=== PATIENT | female | born 1985 | race Caucasian/White ===

== ENCOUNTER 2016-11-11 20:39 | Emergency (ER) | payer BC ==
[2016-11-11 20:49] VITALS: BP 148/99
--- NOTE | 2016-11-11 20:49 | EDM.PDOC ---
ED HPI HEADACHE COMPLAINT - General Chief Complaint: Headache Stated Complaint: MIGRAINE Time Seen by Provider: 11/11/16 20:48 - History of Present Illness INITIAL COMMENTS - FREE TEXT/NARRATIVE: 31-year-old female presents emergency room with atypical migraine. Patient gets these about monthly and usually can treat them at home with tramadol Flexeril and she has a triptan at home however does not like taking it because it makes her feel weird. This headache started this morning and he comes and goes started out behind her left eye and radiated backwards. She had no aura she had to leave work early this evening because the pain is getting worse. Patient denies any fevers chills this is a very typical headache for her she has some nausea no vomiting she has significant photophobia. Patient is on Coumadin for a hypercoagulable state, lupus anticoagulant. - Related Data Allergies/ADRs: Allergies Allergy/AdvReac Type Severity Reaction Status Date / Time Penicillins Allergy Rash Verified 11/11/16 20:48 Sulfa (Sulfonamide Allergy Rash Verified 11/11/16 20:48 Antibiotics) loracet Allergy Vomiting Uncoded 11/11/16 20:48 Home Meds: Home Meds Cholecalciferol (Vitamin D3) [Vitamin D] 1,000 units PO DAILY 09/17/14 [History] [place]-3 Fatty Acids [Fish Oil] 1,000 mg PO DAILY 09/17/14 [History] Simvastatin [Zocor] 20 mg PO DAILY 09/17/14 [History] Warfarin [Coumadin] 7.5 mg PO TUTH 09/17/14 [History] Losartan. 05/28/15 [History] Prilosec. 05/28/15 [History] Warfarin [Coumadin] 5 mg PO SUMOWEFRSA 05/28/15 [History] Acetaminophen with Codeine [Acetamin-Codein 300-30 mg/12.5] 12.5 ml PO Q6H PRN # 1 bottle 06/15/15 [Rx] Albuterol [Proventil HFA] 2 puff INH QID PRN #1 inhaler 06/15/15 [Rx] Azithromycin [Zithromax] 500 mg PO DAILY #5 tablet 06/15/15 [Rx] Past Medical History Cardiovascular History: Reports: High cholesterol, Hypertension Respiratory History: Reports: Asthma Other Genitourinary History: spills protein from her kidneys Other Hematologic History: clotting disorder, lupus anticoagulant Social & Family History - Tobacco Use Smoking Status *Q: Never Smoker Second Hand Smoke Exposure: No - Alcohol Use Days Per Week of Alcohol Use: 0 - Recreational Drug Use Recreational Drug Use: No ED ROS GENERAL - Review of Systems Review Of Systems: See Below Constitutional: Denies: fever, chills HEENT: Reports: No symptoms, Other (Photophobia) Respiratory: Reports: No Symptoms Cardiovascular: Reports: No symptoms GI/Abdominal: Reports: Nausea. Denies: Abdominal pain, Vomiting : Reports: no symptoms Musculoskeletal: Reports: no symptoms Neurological: Reports: Headache. Denies: Confusion, Dizziness, Numbness, Tremors, Trouble Speaking, Difficulty Walking, Weakness Psychiatric: Reports: No symptoms - Physical Exam Exam: See Below Exam Limited By: No limitations General Appearance: alert, no apparent distress Eye Exam: bilateral eye: EOMI, normal inspection, PERRL Ears: normal external exam, normal canal, hearing grossly normal, normal TMs Nose: normal inspection, normal mucosa, no blood Throat/Mouth: Normal inspection, Normal lips, Normal teeth, Normal gums, Normal oropharynx, Normal voice, No airway compromise Head Exam: atraumatic, normocephalic Neck: normal inspection, supple, non-tender, full range of motion Respiratory/Chest: no respiratory distress, lungs clear, normal breath sounds, no accessory muscle use, chest non-tender Cardiovascular: regular rate, rhythm, no edema, no murmur Neuro Exam (Abbreviated): other (Cranial nerves II through XII grossly intact all muscle groups in upper and lower extremities are equal and appropriate bilaterally deep tendon reflexes are equal and appropriate at the brachial radialis bilaterally cerebellar testing including finger to nose and foot down the other leg are both intact balance is preserved.) Course - Vital Signs Last Recorded V/S: Last Vital Signs Temp 36.3 C 11/11/16 20:46 Pulse 86 11/11/16 20:46 Resp 18 11/11/16 20:46 BP 148/99 H 11/11/16 20:46 Pulse Ox 96 11/11/16 20:46 - Orders/Labs/Meds Labs: Laboratory Tests 11/11/16 Range/Units 21:22 PT 39.8 H (8.0-13.0) SECONDS INR 3.38 Meds: Medications Discontinued Medications Generic Name Dose Route Start Last Admin Trade Name Freq PRN Reason Stop Dose Admin Diphenhydramine HCl 50 mg 11/11/16 21:02 11/11/16 21:29 Benadryl IVPUSH 11/11/16 21:03 50 mg ONETIME ONE Administration Lactated Ringer's 1,000 mls @ 999 mls/hr 11/11/16 21:02 11/11/16 21:27 Ringers, Lactated IV 11/11/16 22:02 999 mls/hr .BOLUS ONE Administration Ondansetron HCl 4 mg 11/11/16 21:02 11/11/16 21:28 Zofran IVPUSH 11/11/16 21:03 4 mg ONETIME ONE Administration - Re-Assessments/Exams Free Text/Narrative Re-Assessment/Exam: 11/11/16 21:17 Patient be treated for migraine with a liter of LR 50 mg Benadryl 4 mg Zofran. INR pending as this has not been checked in a while 11/11/16 22:45 Her headache is nearly completely gone. Her INR is a little elevated at 3.38 she has not taken her nightly dose. She will hold tonight dose and then resume normal dosing. She should have her INR checked next week Departure - Departure Time of Disposition: 22:45 Disposition: Home, Self-Care 01 Clinical Impression: Migraine Forms: ED Department Discharge Additional Instructions: Return to the emergency room if any questions or problems. Go home and get some rest. Hold tonight's dose of Coumadin then resume normal dosing tomorrow. Have your INR checked next week
[2016-11-11] MEDS ORDERED: Ondansetron 4 MG/2 ML SDV IVPUSH ONE (21:02)
[2016-11-11] MEDS ORDERED: diphenhydrAMINE 50 MG/ML SDV IVPUSH ONE (21:02)
[2016-11-11] MEDS ORDERED: Lactated Ringers 1,000 ML IV ONE (21:02)
== END 2016-11-11 23:11 | disposition home or self-care (01) ==
LOC: JD.ED 20:39
DX: G43.919 Migraine, unspecified, intractable, without status migrainosus (principal); Z88.0 Allergy status to penicillin; Z88.2 Allergy status to sulfonamides; Z79.899 Other long term (current) drug therapy
CPT/HCPCS: 36415; 85610; 96361; 96374; 96375; 99283; J1200; J2405; J7120; 99284

== ENCOUNTER 2017-02-22 20:40 | Emergency (ER) | payer BC ==
[2017-02-22 20:56] VITALS: BP 155/101
--- NOTE | 2017-02-22 20:59 | EDM.PDOC ---
ED HPI GENERAL MEDICAL PROBLEM - General Chief Complaint: Headache Stated Complaint: MIGRAINE Time Seen by Provider: 02/22/17 20:58 Source of Information: Reports: Patient - History of Present Illness INITIAL COMMENTS - FREE TEXT/NARRATIVE: Patient is here today for evaluation of a headache. She states that this is bilateral sides of the base of her skull and comes only up to her forehead. She reports chronic headaches as well as chronic neck pain. She is under the care of Dr. Avila/orthopedics for these currently. She does have Imitrex, cyclobenzaprine and Zofran at home for when she dates these headaches but states that she has had this headache for several hours without improvement and has not been able to make it home to get her medications. She states that she was at work at [employer] when this started. Patient reports that this headache is very similar to other headaches that she gets. This is not the worst headache of her life. - Related Data Allergies Allergy/AdvReac Type Severity Reaction Status Date / Time Penicillins Allergy Rash Verified 02/22/17 20:56 Sulfa (Sulfonamide Allergy Rash Verified 02/22/17 20:56 Antibiotics) loracet Allergy Vomiting Uncoded 02/22/17 20:56 Home Meds: Home Meds Cholecalciferol (Vitamin D3) [Vitamin D] 1,000 units PO DAILY 09/17/14 [History] [place]-3 Fatty Acids [Fish Oil] 1,000 mg PO DAILY 09/17/14 [History] Simvastatin [Zocor] 20 mg PO DAILY 09/17/14 [History] Warfarin [Coumadin] 7.5 mg PO TUTH 09/17/14 [History] Losartan [Cozaar] 25 mg PO DAILY 05/28/15 [History] Omeprazole Magnesium [Prilosec Otc] 40 mg PO DAILY 05/28/15 [History] Warfarin [Coumadin] 5 mg PO SUMOWEFRSA 05/28/15 [History] Acetaminophen with Codeine [Acetamin-Codein 300-30 mg/12.5] 12.5 ml PO Q6H PRN # 1 bottle 06/15/15 [Rx] Albuterol [Proventil HFA] 2 puff INH QID PRN #1 inhaler 06/15/15 [Rx] Past Medical History Cardiovascular History: Reports: High Cholesterol, Hypertension Respiratory History: Reports: Asthma Other Genitourinary History: spills protein from her kidneys Neurological History: Reports: Migraines Other Hematologic History: clotting disorder, lupus anticoagulant Social & Family History - Tobacco Use Smoking Status *Q: Never Smoker Second Hand Smoke Exposure: No - Caffeine Use Caffeine Use: Reports: Soda - Alcohol Use Days Per Week of Alcohol Use: 0 - Recreational Drug Use Recreational Drug Use: No ED ROS GENERAL - Review of Systems Review Of Systems: See Below Constitutional: Reports: No Symptoms Respiratory: Reports: No Symptoms Cardiovascular: Reports: No Symptoms GI/Abdominal: Denies: Abdominal Pain, Nausea Musculoskeletal: Reports: Neck Pain, Muscle Pain Skin: Reports: No Symptoms Neurological: Reports: Headache. Denies: Dizziness, Numbness Psychiatric: Reports: No Symptoms - Physical Exam Exam: See Below Exam Limited By: No Limitations General Appearance: Alert, WD/WN, Mild Distress Eye Exam: Right Eye: Normal Inspection, PERRL Throat/Mouth: Normal Inspection, Normal Oropharynx Respiratory/Chest: No Respiratory Distress, Lungs Clear, Normal Breath Sounds Cardiovascular: Normal Peripheral Pulses, Regular Rate, Rhythm, No Murmur Neuro Exam (Abbreviated): Alert, Oriented, Normal Cognition, No Motor/Sensory Deficits Psychiatric: Normal Affect, Normal Mood Skin Exam: Warm, Dry, Intact Course - Vital Signs Last Recorded V/S: Last Vital Signs Temp 97.6 F 02/22/17 20:53 Pulse 80 02/22/17 20:53 Resp 18 02/22/17 20:53 BP 155/101 H 02/22/17 20:53 Pulse Ox 100 02/22/17 20:53 - Orders/Labs/Meds Meds: Medications Discontinued Medications Generic Name Dose Route Start Last Admin Trade Name Claudia PRN Reason Stop Dose Admin Cyclobenzaprine HCl 10 mg 02/22/17 21:09 02/22/17 21:25 Flexeril PO 02/22/17 21:10 10 mg ONETIME ONE Administration Sodium Chloride 1,000 mls @ 999 mls/hr 02/22/17 21:08 02/22/17 21:23 Normal Saline IV 02/22/17 22:08 999 mls/hr ONETIME ONE Administration Ketorolac Tromethamine 30 mg 02/22/17 21:10 02/22/17 21:24 Toradol IVPUSH 02/22/17 21:11 30 mg ONETIME ONE Administration - Re-Assessments/Exams Free Text/Narrative Re-Assessment/Exam: Neurologic exam completely normal, this headache is similar to all her other headaches. Will give her 30 mg Toradol as well as 10 mg cyclobenzaprine by mouth and 1 L of normal saline. 02/22/17 21:30 02/22/17 21:30 Patient's headache mostly resolved. Neurological exam normal. Blood pressure now 124/86. Will discharge patient home, her will be driving her there. She will follow up with her primary care provider this week. 02/22/17 22:11 Departure - Departure Time of Disposition: 22:10 Disposition: Home, Self-Care 01 Condition: Good Clinical Impression: Tension-type headache Headache Qualifiers: Headache type: tension-type Headache chronicity pattern: acute headache Intractability: not intractable Qualified Code(s): G44.209 - Tension-type headache, unspecified, not intractable - Discharge Information Forms: ED Department Discharge Additional Instructions: Do not drive, go home and rest. Follow up with your primary provider this week for your headaches or certainly to ER if they should worsen.
[2017-02-22] MEDS ORDERED: Sodium Chloride 0.9% 1,000 ML IV ONE (21:08)
[2017-02-22] MEDS ORDERED: Cyclobenzaprine 10 MG Tab PO ONE (21:09)
[2017-02-22] MEDS ORDERED: Ketorolac 30 MG/ML SDV IVPUSH ONE (21:10)
== END 2017-02-22 22:49 | disposition home or self-care (01) ==
LOC: JD.ED 20:40
DX: G44.209 Tension-type headache, unspecified, not intractable (principal); J45.909 Unspecified asthma, uncomplicated; I10 Essential (primary) hypertension; Z79.899 Other long term (current) drug therapy; Z88.0 Allergy status to penicillin; Z88.2 Allergy status to sulfonamides; Z88.8 Allergy status to other drugs, medicaments and biological substances
CPT/HCPCS: 96361; 96374; 99284; A9270; J1885; J7040

== ENCOUNTER 2017-05-03 06:08 | Emergency (ER) | payer BC ==
[2017-05-03 06:24] VITALS: BP 185/105
[2017-05-03] MEDS ORDERED: Haloperidol Lactate 5 MG/ML SDV IM ONE (06:51)
[2017-05-03] MEDS ORDERED: Benztropine 1 MG Tab PO STA (06:51)
[2017-05-03] MEDS ORDERED: Ondansetron 4 MG/2 ML SDV IVPUSH ONE (06:51)
[2017-05-03] MEDS ORDERED: Sodium Chloride 0.9% 500 ML IV ONE (06:51)
--- NOTE | 2017-05-03 07:11 | EDM.PDOC ---
ED HPI GENERAL MEDICAL PROBLEM - General Chief Complaint: Headache Stated Complaint: HEADACH Time Seen by Provider: 05/03/17 06:26 Source of Information: Reports: Patient, Old Records, RN Notes Reviewed History Limitations: Reports: No Limitations - History of Present Illness INITIAL COMMENTS - FREE TEXT/NARRATIVE: The patient states that she developed a headache involving her entire head around midnight. It is sharp/throbbing in character. She has photophobia and slight phonophobia. She has nausea, but no emesis. She denies visual changes. She denies neurologic symptoms, such as tingling, numbness, or weakness. The patient states that she has had similar headaches many times in the past. She states that she gets a "migraine" at least once a month. Ordinarily she takes Imitrex, however, she is currently out. She took some Flexeril and Benadryl at home, but these did not help. The patient has never previously had a neurologic evaluation. She is not prescribed any migraine prophylactic medications. She states that the last imaging study of her head was about 2 years ago. The patient's PCP is Dr. Dobson. Headache Pain Score (Numeric/FACES): 10 - Related Data Allergies Allergy/AdvReac Type Severity Reaction Status Date / Time Penicillins Allergy Rash Verified 02/22/17 20:56 Sulfa (Sulfonamide Allergy Rash Verified 02/22/17 20:56 Antibiotics) loracet Allergy Vomiting Uncoded 02/22/17 20:56 Home Meds: Home Meds Cholecalciferol (Vitamin D3) [Vitamin D] 1,000 units PO DAILY 09/17/14 [History] [place]-3 Fatty Acids [Fish Oil] 1,000 mg PO DAILY 09/17/14 [History] Simvastatin [Zocor] 20 mg PO DAILY 09/17/14 [History] Warfarin [Coumadin] 7.5 mg PO TUTH 09/17/14 [History] Losartan [Cozaar] 25 mg PO DAILY 05/28/15 [History] Omeprazole Magnesium [Prilosec Otc] 40 mg PO DAILY 05/28/15 [History] Warfarin [Coumadin] 5 mg PO SUMOWEFRSA 05/28/15 [History] Albuterol [Proventil HFA] 2 puff INH QID PRN #1 inhaler 06/15/15 [Rx] Orphenadrine [Norflex] 1 tab PO Q12H #10 tab.er 05/03/17 [Rx] Past Medical History Cardiovascular History: Reports: High Cholesterol, Hypertension Respiratory History: Reports: Asthma Gastrointestinal History: Reports: GERD Neurological History: Reports: Migraines Psychiatric History: Reports: Anxiety Endocrine/Metabolic History: Reports: Obesity/BMI 30+ Hematologic History: Reports: Anticoagulation Therapy (warfarin), Bleeding Disorder (Lupus anticoagulant) - Past Surgical History HEENT Surgical History: Reports: Eye Surgery (Strabismus correction), Oral Surgery ([place] teeth extraction), Tonsillectomy Female Surgical History: Reports: Section (x 1), D&C (x 1) Endocrine Surgical History: Reports: Thyroid Biopsy Musculoskeletal Surgical History: Reports: Other (See Below) (Left bunionectomy) Social & Family History - Family History Endocrine/Metabolic: Reports: Diabetes, type II, Hypothyroidism - Tobacco Use Smoking Status *Q: Never Smoker Second Hand Smoke Exposure: No - Caffeine Use Caffeine Use: Reports: Soda - Alcohol Use Alcohol Use History: Yes Alcohol Use Frequency: Rarely - Recreational Drug Use Recreational Drug Use: No - Living Situation & Occupation Living situation: Reports: , with Spouse, with Family (Daughter) 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) ED [facility] GENERAL - Review of Systems Review Of Systems: See Below Constitutional: Reports: No Symptoms HEENT: Reports: No Symptoms Respiratory: Reports: No Symptoms Cardiovascular: Reports: No Symptoms Endocrine: Reports: No Symptoms GI/Abdominal: Reports: No Symptoms : Reports: No Symptoms Musculoskeletal: Reports: No Symptoms Skin: Reports: No Symptoms Neurological: Reports: No Symptoms Psychiatric: Reports: No Symptoms Hematologic/Lymphatic: Reports: No Symptoms Immunologic: Reports: No Symptoms - Physical Exam Exam: See Below Exam Limited By: No Limitations General Appearance: Alert, WD/WN, No Apparent Distress Eye Exam: Bilateral Eye: EOMI, Normal Inspection, PERRL Ears: Normal External Exam, Hearing Grossly Normal Nose: Normal Inspection, No Blood Throat/Mouth: Normal Inspection, Normal Lips, Normal Voice, No Airway Compromise Head Exam: Atraumatic, Normocephalic Neck: Normal Inspection, Full Range of Motion Respiratory/Chest: No Respiratory Distress, Lungs Clear, Normal Breath Sounds, No Accessory Muscle Use Cardiovascular: Normal Peripheral Pulses, Regular Rate, Rhythm, No Gallop, No JVD, No Murmur, No Rub GI/Abdominal: Normal Bowel Sounds, Soft, Non-Tender, No Organomegaly, No Distention, No Abnormal Bruit, No Mass, Other (Obese) (Female) Exam: Deferred Rectal (Female) Exam: Deferred Neuro Exam (Abbreviated): Alert, Oriented, CN II-XII Intact, Normal Cognition, No Motor/Sensory Deficits Back Exam: Normal Inspection, Full Range of Motion, NT Extremities: Normal Inspection, Normal Range of Motion, No Pedal Edema, Normal Capillary Refill Psychiatric: Normal Affect Skin Exam: Warm, Dry, Intact, Normal Color, No Rash Course - Vital Signs Last Recorded V/S: Last Vital Signs Temp 36.4 C 05/03/17 06:21 Pulse 75 05/03/17 06:21 Resp 14 05/03/17 06:21 BP 185/105 H 05/03/17 06:21 Pulse Ox 97 05/03/17 06:21 - Orders/Labs/Meds Meds: Medications Discontinued Medications Generic Name Dose Route Start Last Admin Trade Name Claudia PRN Reason Stop Dose Admin Benztropine Mesylate 1 mg 05/03/17 06:51 05/03/17 07:15 Cogentin PO 05/03/17 06:52 1 mg ONETIME STA Administration Haloperidol Lactate 5 mg 05/03/17 06:51 05/03/17 07:15 Haldol IM 05/03/17 06:52 5 mg ONETIME ONE Administration Sodium Chloride 500 mls @ 999 mls/hr 05/03/17 06:51 05/03/17 07:27 Normal Saline IV 05/03/17 07:21 999 mls/hr .BOLUS ONE Administration Ondansetron HCl 4 mg 05/03/17 06:51 05/03/17 07:03 Zofran IVPUSH 05/03/17 06:52 4 mg ONETIME ONE Administration - Re-Assessments/Exams Free Text/Narrative Re-Assessment/Exam: 05/03/17 07:44 CT of the head without contrast is read by Dr. Connell as: 1. Nothing acute is identified on noncontrast head CT study. No significant change is identified from prior head CT exam. 05/03/17 07:47 The patient states that the Haldol did nothing to improve her headache. This strongly suggests that the patient's headache is not migrainous. I will treat her with Norflex and Fioricet, and discharge her home with an e-prescription for Norflex. Departure - Departure Time of Disposition: 07:49 Disposition: Home, Self-Care 01 Condition: Good Clinical Impression: Tension headache - Discharge Information Referrals: Juan Styles MD [Primary Care Provider] - Forms: ED Department Discharge Additional Instructions: You were seen in the emergency room for a headache. Workup in the ER included a CT scan of her head, which was normal. You were treated with anti-migraine medicine, which did not help your headache. This STRONGLY suggests that your headache is not a migraine. You have therefore been treated with medicine to treat a tension-type headache. If your symptoms recur, you may take one tablet of the muscle relaxant medicine Norflex up to every 12 hours, as prescribed. Follow-up with your PCP, Dr. Dobson, as needed. If any other problems, please do not hesitate to return to the ER.
--- NOTE | 2017-05-03 07:23 | CT ---
Head CT Technique: Multiple axial sections through the brain were obtained. Intravenous contrast was not utilized. Comparison: Previous head CT exam of 10/18/13. Findings: Ventricles along with basal cisterns and sulci over the convexities are within normal limits for the patient's age. No abnormal parenchymal densities are seen. No evidence of intracranial hemorrhage. No midline shift or mass effect is seen. Bone window settings were reviewed which shows no discrete calvarial abnormality. Visualized sinuses are clear. Impression: 1. Nothing acute is identified on noncontrast head CT study. No significant change is identified from prior head CT exam. Diagnostic code #1
[2017-05-03] MEDS ORDERED: Orphenadrine 100 MG Tab.ER PO STA (07:48)
[2017-05-03] MEDS ORDERED: Acetaminophen/Butalbital/Caffeine 325-50-40 MG Tab PO ONE (07:48)
== END 2017-05-03 08:19 | disposition home or self-care (01) ==
LOC: JD.ED 06:08
DX: G44.209 Tension-type headache, unspecified, not intractable (principal); I10 Essential (primary) hypertension; E78.00 Pure hypercholesterolemia, unspecified; J45.909 Unspecified asthma, uncomplicated; K21.9 Gastro-esophageal reflux disease without esophagitis; E66.9 Obesity, unspecified; Z79.01 Long term (current) use of anticoagulants; Z98.890 Other specified postprocedural states; Z79.899 Other long term (current) drug therapy; Z88.0 Allergy status to penicillin; Z88.2 Allergy status to sulfonamides; Z88.8 Allergy status to other drugs, medicaments and biological substances
CPT/HCPCS: 70450; 96361; 96372; 96374; 99284; A9270; J1630; J2405; J7040

== ENCOUNTER 2017-08-13 02:41 | Emergency (ER) | payer BC ==
[2017-08-13 02:52] VITALS: BP 159/110
--- NOTE | 2017-08-13 03:46 | EDM.PDOC ---
ED HPI GENERAL MEDICAL PROBLEM - General Chief Complaint: Neck Problem Stated Complaint: NECK PAIN Time Seen by Provider: 08/13/17 03:00 Source of Information: Reports: Patient History Limitations: Reports: No Limitations - History of Present Illness INITIAL COMMENTS - FREE TEXT/NARRATIVE: The patient states that she pulled a muscle in her left neck about 2 weeks ago. She then developed sharp right-sided neck pain on Monday night, 08/09/2017. She was seen at a [facility] walk[facility]in [facility] on , 08/10/2017. She states that no tests or imaging studies were performed, however, she was prescribed 50 mg per day x 5 days, and Robaxin 500 mg, 1-2 tabs po BID. she states that these medications initially helped, but not tonight. She states that she has tried a heating pad and a hot shower, with no relief. She states that she cannot take NSAIDs due to being on Coumadin. No recent neck injury. No palpable abnormality, such as swelling. No recent fever. The patient denies prior similar symptoms, however, she states that she had right shoulder pain in the past, and was seen by Dr. Avila. She states that he found that she had some weakness and was concerned about cervical radiculopathy , therefore ordered a MRI of the cervical spine, which found bulging disks and pinched nerves. A review of her prior medical records finds that she underwent a cervical MRI on 02/02/2017, ordered by Dr. Avila. The report reads: 1. Minimal disc bulging. 2. No disc herniation, central canal stenosis or neural foraminal stenosis is seen. The patient's PCP is Dr. Dobson. Right Neck Pain Score (Numeric/FACES): 10 - Related Data Allergies Allergy/AdvReac Type Severity Reaction Status Date / Time Penicillins Allergy Rash Verified 02/22/17 20:56 Sulfa (Sulfonamide Allergy Rash Verified 02/22/17 20:56 Antibiotics) loracet Allergy Vomiting Uncoded 02/22/17 20:56 Home Meds: Home Meds Cholecalciferol (Vitamin D3) [Vitamin D3] 1,000 units PO DAILY 09/17/14 [History ] [place]-3 Fatty Acids [Fish Oil] 1,000 mg PO DAILY 09/17/14 [History] Simvastatin [Zocor] 20 mg PO DAILY 09/17/14 [History] Warfarin [Coumadin] 7.5 mg PO TUTH 09/17/14 [History] Losartan [Cozaar] 25 mg PO DAILY 05/28/15 [History] Omeprazole Magnesium [Prilosec Otc] 40 mg PO DAILY 05/28/15 [History] Warfarin [Coumadin] 5 mg PO SUMOWEFRSA 05/28/15 [History] Albuterol [Proventil HFA] 2 puff INH QID PRN #1 inhaler 06/15/15 [Rx] Carisoprodol [Soma] 1 tab PO QID PRN #28 tablet 08/13/17 [Rx] Past Medical History Cardiovascular History: Reports: Blood Clots/VTE/DVT, High Cholesterol, Hypertension Respiratory History: Reports: Asthma Gastrointestinal History: Reports: GERD Genitourinary History: Reports: Other (See Below) Other Genitourinary History: Proteinuria 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 Musculoskeletal History: tennis elbow, neck pain Neurological History: Reports: Migraines Psychiatric History: Reports: Anxiety Endocrine/Metabolic History: Reports: Obesity/BMI 30+ Hematologic History: Reports: Anticoagulation Therapy, Bleeding Disorder Other Hematologic History: clotting disorder, lupus anticoagulant - Past Surgical History HEENT Surgical History: Reports: Eye Surgery, Oral Surgery, Tonsillectomy Female Surgical History: Reports: Section, D&C, Tubal Ligation Endocrine Surgical History: Reports: Thyroid Biopsy Social & Family History - Family History Endocrine/Metabolic: Reports: Diabetes, type II, Hypothyroidism - Tobacco Use Smoking Status *Q: Never Smoker Second Hand Smoke Exposure: No - Caffeine Use Caffeine Use: Reports: Soda - Alcohol Use Days Per Week of Alcohol Use: 0 - Recreational Drug Use Recreational Drug Use: No - Living Situation & Occupation Living situation: Reports: , with Spouse, with Family (Daughter) 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 ED EXAM, GENERAL - Physical Exam Exam: See Below Exam Limited By: No Limitations General Appearance: Alert, WD/WN, No Apparent Distress Eye Exam: Bilateral Eye: Normal Inspection Ears: Normal External Exam, Hearing Grossly Normal Nose: Normal Inspection, No Blood Throat/Mouth: Normal Inspection, Normal Lips, Normal Voice, No Airway Compromise Head: Atraumatic, Normocephalic Neck: Normal Inspection, Other (No visible abnormality to the patient's neck, such as swelling, erythema, ecchymosis, or abrasion. The patient reports tenderness to palpation of the right sternocleidomastoid muscle. She refuses to move her head in any direction, citing pain.) Neurological: Alert, Oriented, Normal Cognition, No Motor/Sensory Deficits Psychiatric: Normal Affect Skin Exam: Warm, Dry, Intact, Normal Color, No Rash Course - Vital Signs Last Recorded V/S: Last Vital Signs Temp 36.2 C 08/13/17 02:49 Pulse 89 08/13/17 02:49 Resp 18 08/13/17 02:49 BP 159/110 H 08/13/17 02:49 Pulse Ox 98 08/13/17 02:49 - Re-Assessments/Exams Free Text/Narrative Re-Assessment/Exam: 08/13/17 03:40 The patient appears to be suffering from a muscle spasm in her right neck. When seen by me in April, I prescribed Norflex, which she states she still has at home, and now has a prescription for Robaxin. My recommendation is that she continue the Robaxin and discontinue the prednisone, which appears to have been prescribed as an anti-inflammatory for cervical radiculopathy, which she does not have. The patient, however, would prefer to try a different muscle relaxant. I can prescribe Soma, however, we do not have it on formulary, therefore she will have to wait until noon to be able to pick it up at the pharmacy. The patient is agreeable to this. The patient asked numerous times what can be done to give her immediate relief. I explained several times that there is no quick fix to this problem, that she will have to be patient. I am recommending that she stretch the muscles in her neck, even if painful. I would recommend that she continue heating pads and/or warm showers, and if her symptoms persist into next week despite these treatments and the Soma, that she follow-up with her PCP. Despite my best efforts, the patient seems disappointed with my answer. Departure - Departure Time of Disposition: 03:41 Disposition: Home, Self-Care 01 Condition: Good Clinical Impression: Neck muscle spasm - Discharge Information Prescriptions: Carisoprodol [Soma] 1 tab PO QID PRN #28 tablet PRN Reason: Muscle Spasm Referrals: Juan Styles MD [Primary Care Provider] - Additional Instructions: You were seen in the emergency room for right-sided neck pain. Based on your examination and review of a previous MRI of your neck, your pain is MOST LIKELY due to a muscle spasm. You have requested to be switched to a different muscle relaxant. Take one tablet of the new muscle relaxant, Soma, 3 times a day, plus at bedtime, as prescribed. It is very important that if you are taking Soma, that you DISCONTINUE the Robaxin (methocarbamol), and not also take Norflex (orphenadrine). We recommend that you DISCONTINUE the prednisone. It is important that you stretch the affected muscles, by tilting your head to the left and right, even if it is painful. If your symptoms have not improved by the middle of this week, please follow-up with your PCP, Dr. Dobson. If any other problems, please do not hesitate to return to the ER.
== END 2017-08-13 04:04 | disposition home or self-care (01) ==
LOC: JD.ED 02:41
DX: M62.838 Other muscle spasm (principal); E78.00 Pure hypercholesterolemia, unspecified; I10 Essential (primary) hypertension; Z88.0 Allergy status to penicillin; Z88.2 Allergy status to sulfonamides; Z79.899 Other long term (current) drug therapy; Z79.01 Long term (current) use of anticoagulants
CPT/HCPCS: 99283

== ENCOUNTER 2019-07-21 16:10 | Emergency (ER) | payer BC ==
[2019-07-21 16:27] VITALS: BP 149/88; PULSE 80
--- NOTE | 2019-07-21 16:51 | EDM.PDOC ---
ED HPI GENERAL MEDICAL PROBLEM - General Chief Complaint: Respiratory Problem Stated Complaint: COUGHING Time Seen by Provider: 07/21/19 16:46 Source of Information: Reports: Patient History Limitations: Reports: No Limitations - History of Present Illness INITIAL COMMENTS - FREE TEXT/NARRATIVE: 34-year-old female presents the ED for evaluation of severe paroxysmal cough. She's been sick for about 2 weeks but today became much worse. On examination the ED she is also febrile which she was not aware of. They've a headache although she does have some mild generalized myalgia. She has pain in her central chest from coughing so much. His cough to the point of emesis. Today she coughed to the point of nearly passing out i.e. laryngospasm. Patient is chronically anticoagulated with Coumadin due to recurrent DVT and pulmonary emboli. She denies any hemoptysis. She has been using an albuterol inhaler with minimal relief of the cough. Onset: Other Onset Date: 07/03/19 Duration: Week(s):, Getting Worse Location: Reports: Chest (Severe paroxysmal mildly productive cough) Quality: Reports: Ache, Burning (Central chest burning ache) Severity: Moderate Improves with: Reports: None Worsens with: Reports: Other Context: Denies: Activity (Exposure to cool air makes the cough much worse and lying down makes the cough worse.), Exercise, Lifting, Sick Contact, Trauma, Other Associated Symptoms: Reports: Chest Pain, Cough, cough w sputum, Malaise, Shortness of Breath. 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: Other (see below) (None.) Chest Pain Score (Numeric/FACES): 7 - Related Data Allergies Allergy/AdvReac Type Severity Reaction Status Date / Time Penicillins Allergy Rash Verified 02/22/17 20:56 Sulfa (Sulfonamide Allergy Rash Verified 02/22/17 20:56 Antibiotics) loracet Allergy Vomiting Uncoded 02/22/17 20:56 Home Meds: Home Meds Cholecalciferol (Vitamin D3) [Vitamin D3] 1,000 units PO DAILY 09/17/14 [History ] [address] Fatty Acids [Fish Oil] 1,000 mg PO DAILY 09/17/14 [History] Simvastatin [Zocor] 20 mg PO BEDTIME 09/17/14 [History] Warfarin [Coumadin] 7.5 mg PO MOWEFR 09/17/14 [History] Losartan [Cozaar] 25 mg PO DAILY 05/28/15 [History] Omeprazole Magnesium [Prilosec Otc] 40 mg PO DAILY 05/28/15 [History] Warfarin [Coumadin] 5 mg PO SUTUTHSA 05/28/15 [History] Albuterol [Proventil HFA] 2 puff INH QID PRN #1 inhaler 06/15/15 [Rx] Cephalexin [Keflex] 500 mg PO TID #24 capsule 07/21/19 [Rx] Codeine/Promethazine [Phenergan with Codeine] 15 ml PO Q6HR PRN #180 ml [Rx] traMADol [Ultram] 50 mg PO Q6H PRN 07/21/19 [History] Past Medical History Cardiovascular History: Reports: Blood Clots/VTE/DVT, High Cholesterol, Hypertension Respiratory History: Reports: Asthma Gastrointestinal History: Reports: GERD Genitourinary History: Reports: Other (See Below) Other Genitourinary History: Proteinuria 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 Musculoskeletal History: tennis elbow, neck pain Neurological History: Reports: Migraines Psychiatric History: Reports: Anxiety Endocrine/Metabolic History: Reports: Obesity/BMI 30+ Hematologic History: Reports: Anticoagulation Therapy, Bleeding Disorder Other Hematologic History: clotting disorder, lupus anticoagulant - Past Surgical History HEENT Surgical History: Reports: Eye Surgery, Oral Surgery, Tonsillectomy Female Surgical History: Reports: Section, D&C, Tubal Ligation Endocrine Surgical History: Reports: Thyroid Biopsy Social & Family History - Family History Endocrine/Metabolic: Reports: Diabetes, type II, Hypothyroidism - Tobacco Use Smoking Status *Q: Never Smoker - Caffeine Use Caffeine Use: Reports: Soda - Recreational Drug Use Recreational Drug Use: No - Living Situation & Occupation Living situation: Reports: , with Spouse, with Family (Daughter) 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 Denies: Chills (She wasn't aware of fever but she is definitely got a fever in the ED.) HEENT: Reports: No Symptoms Respiratory: Reports: Shortness of Breath, Cough, Sputum. Denies: Wheezing, Pleuritic Chest Pain Cardiovascular: Reports: Chest Pain. Denies: Blood Pressure Problem (Central chest discomfort from coughing so much.), Claudication, Dyspnea on Exertion, Edema, Lightheadedness, Orthopnea Endocrine: Reports: Fatigue GI/Abdominal: Reports: Vomiting (Posttussive vomiting has occurred a couple of times.) : Reports: No Symptoms Musculoskeletal: Reports: No Symptoms Skin: Reports: Bruising (Due to being on Coumadin.) Neurological: Reports: No Symptoms Psychiatric: Reports: No Symptoms Hematologic/Lymphatic: Reports: No Symptoms Immunologic: Reports: No Symptoms ED EXAM, GENERAL - Physical Exam Exam: See Below Exam Limited By: No Limitations General Appearance: Alert, WD/WN, No Apparent Distress, Other (Temperature is recorded as 36.5 but is inaccurate. Patient is clinically is 101.5-102. Pulse is 80. Respiratory distress 20 with O2 sats 100%. BP is mildly elevated 149/88) Eye Exam: Bilateral Eye: Normal Inspection Ears: Normal TMs Throat/Mouth: Normal Inspection, Normal Lips, Normal Oropharynx Head: Atraumatic, Normocephalic Neck: Normal Inspection, Supple, Non-Tender, Full Range of Motion. No: Lymphadenopathy (L), Lymphadenopathy (R) Respiratory/Chest: No Respiratory Distress, Lungs Clear, Normal Breath Sounds, No Accessory Muscle Use, Decreased Breath Sounds (Decreased air entry to both lower lung pedroza due to shallow breathing.). No: Rhonchi, Wheezing Cardiovascular: Normal Peripheral Pulses, Regular Rate, Rhythm, No Edema, No Gallop, No Murmur, No Rub Peripheral Pulses: 3+: Posterior Tibial (L), Posterior Tibial (R), Dorsalis Pedis (L), Dorsalis Pedis (R) Extremities: Normal Inspection, Normal Range of Motion, Non-Tender Neurological: Alert, Oriented, CN II-XII Intact, Normal Cognition Psychiatric: Normal Affect, Normal Mood Skin Exam: Warm, Dry, Intact, Normal Color, No Rash Course - Vital Signs Last Recorded V/S: Last Vital Signs Temp 36.5 C 07/21/19 16:26 Pulse 80 07/21/19 16:26 Resp 20 07/21/19 16:26 BP 149/88 H 07/21/19 16:26 Pulse Ox 100 12/08/19 16:26 - Orders/Labs/Meds Meds: Medications Discontinued Medications Generic Name Dose Route Start Last Admin Trade Name Claudia PRN Reason Stop Dose Admin Cephalexin 500 mg 07/21/19 17:32 07/21/19 17:42 Keflex PO 07/21/19 17:33 500 mg ONETIME ONE Administration Promethazine HCl/Codeine 15 ml 07/21/19 17:31 07/21/19 17:42 Phenergan With Codeine PO 07/21/19 17:32 15 ml ONETIME ONE Administration - Radiology Interpretation Free Text/Narrative:: 34-year-old female presents to the ED due to worsening cough over the last 2 weeks. Today was particularly bad with exposure to cool air outside where she is working at [employer]. She states she coughed to the point that she nearly blacked out. She has coughed to the point of emesis on a couple of occasions. On exam she is acutely febrile when she did not recognize. Medically she doesn' t have any significant signs or symptoms of influenza.Plan since she's been coughing for over 2 weeks 2 view chest x-ray will be obtained. - Re-Assessments/Exams Free Text/Narrative Re-Assessment/Exam: 07/21/19 17:53: Two-view chest x-ray is negative for any pneumonia. Therefore appears that she has had bronchitis that has been prolonged for over 2 weeks. She does indeed have a significant fever today. I will therefore treat her with Keflex 500 mg 3 times a day for the next 10 days to clear up bronchitis. Codeine cough syrup with Phenergan 15 mils every 6-8 hours as needed for cough relief. Given to excuse her from the workplace for the next 2 days. Follow-up if not better in 5-7 days. Departure - Departure Time of Disposition: 17:33 Disposition: Home, Self-Care 01 Condition: Fair Clinical Impression: Upper respiratory tract infection, Bronchitis - Discharge Information *PRESCRIPTION DRUG MONITORING PROGRAM REVIEWED*: Not Applicable *COPY OF PRESCRIPTION DRUG MONITORING REPORT IN PATIENT ROSSI: Not Applicable Prescriptions: Codeine/Promethazine [Phenergan with Codeine] 15 ml PO Q6HR PRN #180 ml PRN Reason: Cough relief Cephalexin [Keflex] 500 mg PO TID #24 capsule Instructions: Acute Bronchitis, Adult, [id number], Upper Respiratory Infection, Adult, [id number] Referrals: Juan Styles MD [Primary Care Provider] - Forms: ED Department Discharge, ED Return to Work/School Form Additional Instructions: Evaluation the emergency room today in regards to severe paroxysmal cough for 2 weeks with sudden onset of fever today. Two-view chest x-ray is negative for any pneumonia at this point time.His therefore bronchitis. Tylenol 650 mg every 6 hours as needed for fever relief. Antibiotic is to be cephalexin 500 mg 3 times daily for the next 8 days to clear up infection. Cough syrup his Phenergan With Codeine 15 mils every 6-8 hours as necessary for cough relief. It should primarily be used at bedtime to good hour before planning to go to sleep. Should be taken with some food in the stomach. Off work for the next 2 days due to current illness. Follow-up with personal care provider if not markedly improved in 5 days time Sepsis Event Note - Focused Exam Date Exam was Performed: 07/24/19 Time Exam was Performed: 21:52
[2019-07-21] MEDS ORDERED: Codeine/Promethazine 10-6.25 MG/5 ML Syrup 5 ML UD Cup PO ONE (17:31)
[2019-07-21] MEDS ORDERED: Cephalexin 500 MG Cap PO ONE (17:32)
--- NOTE | 2019-07-22 09:18 | CR ---
Chest: Two views of the chest were obtained. Comparison: Prior chest x-ray of 12/18/17. Heart size and mediastinum are normal. Lungs are clear. Bony structures appear within normal limits for the patient's age. Impression: 1. Nothing acute is seen on two-view chest x-ray. Diagnostic code #1 This report was dictated in [place] Standard Time
== END 2019-07-21 18:00 | disposition home or self-care (01) ==
LOC: JD.ED 16:10
DX: J40 Bronchitis, not specified as acute or chronic (principal); J06.9 Acute upper respiratory infection, unspecified; F41.9 Anxiety disorder, unspecified; J45.909 Unspecified asthma, uncomplicated; I10 Essential (primary) hypertension; E78.00 Pure hypercholesterolemia, unspecified; Z79.01 Long term (current) use of anticoagulants; Z79.899 Other long term (current) drug therapy; Z88.0 Allergy status to penicillin; Z88.2 Allergy status to sulfonamides; Z88.8 Allergy status to other drugs, medicaments and biological substances
CPT/HCPCS: 71046; 99284; A9270

== ENCOUNTER 2023-07-29 19:29 | Emergency (ER) | payer BC ==
[2023-07-29] MEDS ORDERED: Sodium Chloride 0.9% 1,000 ML IV SCH ×2 (20:00→21:30)
[2023-07-29] MEDS ORDERED: Acetaminophen 325 MG Tab PO ONE (20:03)
[2023-07-29] MEDS ORDERED: Sodium Chloride 0.9% 10 ML Syringe FLUSH PRN (20:12)
[2023-07-29 20:38] LABS: BASOPHILS PERCENT AUTO 0.2 % (0.0-1.0); EOSINOPHILS ABSOLUTE AUTO 0.2 K/mm3 (0.0-0.4); HEMOGLOBIN 14.5 gm/dl (12.0-16.0); IMMATURE GRAN ABSOLUTE AUTO 0.07 K/mm3 (0.00-0.05); IMMATURE GRAN PERCENT AUTO 0.4 % (0.0-0.4); LYMPHOCYTES ABSOLUTE AUTO 0.3 K/mm3 (1.0-4.8); LYMPHOCYTES PERCENT AUTO 2.2 % (24.0-44.0); MEAN CORPUSCULAR HEMOGLOBIN 28.8 pg (28.0-32.0); MEAN CORPUSCULAR HGB CONC 33.7 g/dl (32.0-36.0); MEAN CORPUSCULAR VOLUME 85.5 fl (83.0-99.0); MEAN PLATELET VOLUME 10.1 fl (9.4-12.3); MONOCYTES ABSOLUTE AUTO 0.3 K/mm3 (0.0-0.8); MONOCYTES PERCENT AUTO 1.8 % (0.0-8.0); NEUTROPHILS ABSOLUTE AUTO 14.9 K/mm3 (1.8-7.7); NEUTROPHILS PERCENT AUTO 94.4 % (41.0-71.0); PLATELET COUNT,PLT 318 K/mm3 (150-400); RED BLOOD CELL COUNT 5.03 M/mm3 (4.10-5.30); WHITE BLOOD CELL COUNT,WBC 15.73 K/mm3 (3.9-11.3)
[2023-07-29 20:57] LABS: CORONAVIRUS COVID-19 NAA NEGATIVE (NEGATIVE); INFLUENZA A NAA NEGATIVE (NEGATIVE); RESPIRATORY SYNCYTIAL VIR NAA NEGATIVE (NEGATIVE)
[2023-07-29 21:00] LABS: A/G RATIO 0.7 (1-2); ALBUMIN 3.2 g/dl (3.4-5.0); ANION GAP 17.8 (5-15); BILIRUBIN TOTAL 0.5 mg/dL (0.2-1.0); BUN/CREATININE RATIO 14.8 (14-18); CALCIUM 8.9 mg/dL (8.5-10.1); CREATININE 2.3 mg/dL (0.55-1.02); EST CRCL DRUG DOSING (CG) 23.35 mL/min; POTASSIUM,K 3.8 mEq/L (3.5-5.1); PROTEIN TOTAL,TP 7.7 g/dl (6.4-8.2)
[2023-07-29 21:19] LABS: SLIDE REVIEW ABNORMAL SMEAR
[2023-07-29 21:37] LABS: APPEARANCE,URINE CLEAR (Clear); BILIRUBIN,URINE NEGATIVE (Negative); COLOR,URINE LIGHT YELLOW (Yellow); GLUCOSE,URINE NEGATIVE (Negative); KETONES,URINE NEGATIVE (Negative); LEUKOCYTE ESTERASE,URINE NEGATIVE (Negative); NITRITE,URINE NEGATIVE (Negative); OCCULT BLOOD,URINE 1+ (Negative); PH,URINE 5.5 (5.0-8.0); PROTEIN,URINE 3+ (Negative); UROBILINOGEN,URINE 0.2 (0.2-1.0)
[2023-07-29 21:49] LABS: BACTERIA,URINE MODERATE /hpf (FEW); WBC,URINE 0-5 /hpf (0-5)
[2023-07-29 21:50] LABS: MUCUS,URINE FEW /hpf (FEW)
[2023-07-30 00:58] LABS: ANION GAP 16.6 (5-15); BUN/CREATININE RATIO 14.5 (14-18); CALCIUM 8.2 mg/dL (8.5-10.1); CREATININE 2.2 mg/dL (0.55-1.02); EST CRCL DRUG DOSING (CG) 24.42 mL/min; POTASSIUM,K 3.6 mEq/L (3.5-5.1)
[2023-07-30] MEDS ORDERED: Lactated Ringers 1,500 ML IV ONE (02:03)
[2023-07-30 03:51] LABS: ANION GAP 14.6 (5-15); BUN/CREATININE RATIO 14.3 (14-18); CREATININE 2.1 mg/dL (0.55-1.02); EST CRCL DRUG DOSING (CG) 25.58 mL/min; POTASSIUM,K 3.6 mEq/L (3.5-5.1)
[2023-07-30 04:27] VITALS: BP 124/80; PULSE 94
== END 2023-07-30 04:26 | disposition home or self-care (01) ==
LOC: JD.ED 19:29
DX: N17.9 Acute kidney failure, unspecified (principal); I12.0 Hypertensive chronic kidney disease with stage 5 chronic kidney disease or end stage renal disease; N18.9 Chronic kidney disease, unspecified; E78.00 Pure hypercholesterolemia, unspecified; J45.909 Unspecified asthma, uncomplicated; K21.9 Gastro-esophageal reflux disease without esophagitis; Z79.01 Long term (current) use of anticoagulants; Z88.0 Allergy status to penicillin; Z88.2 Allergy status to sulfonamides; Z88.8 Allergy status to other drugs, medicaments and biological substances; Z88.5 Allergy status to narcotic agent; Z79.899 Other long term (current) drug therapy
CPT/HCPCS: 0241U; 36415; 80048; 80053; 81001; 82550; 85025; 86140; 87086; 96360; 96361; 99284; A9270; J3490; J7030; J7120

== ENCOUNTER 2025-02-28 22:57 | Emergency (ER) | payer BC ==
[2025-02-28 23:53] LABS: BASOPHILS ABSOLUTE AUTO 0.1 K/mm3 (0.0-0.2); BASOPHILS PERCENT AUTO 0.6 % (0.0-1.0); EOSINOPHILS ABSOLUTE AUTO 0.4 K/mm3 (0.0-0.4); EOSINOPHILS PERCENT AUTO 3.5 % (0.0-6.0); IMMATURE GRAN ABSOLUTE AUTO 0.04 K/mm3 (0.00-0.05); IMMATURE GRAN PERCENT AUTO 0.4 % (0.0-0.4); LYMPHOCYTES ABSOLUTE AUTO 3.2 K/mm3 (1.0-4.8); LYMPHOCYTES PERCENT AUTO 31.2 % (24.0-44.0); MEAN PLATELET VOLUME 10.3 fl (9.4-12.3); MONOCYTES ABSOLUTE AUTO 0.7 K/mm3 (0.0-0.8); MONOCYTES PERCENT AUTO 7.0 % (0.0-8.0); NEUTROPHILS ABSOLUTE AUTO 6.0 K/mm3 (1.8-7.7); NEUTROPHILS PERCENT AUTO 57.3 % (41.0-71.0); NRBC ABSOLUTE 0.00 (0.00-0.02); NRBC PERCENT 0.0 % (0.0-0.2); PLATELET COUNT,PLT 318 K/mm3 (150-400); RED BLOOD CELL COUNT 4.57 M/mm3 (4.10-5.30); WHITE BLOOD CELL COUNT,WBC 10.38 K/mm3 (3.9-11.3)
[2025-03-01 00:17] LABS: A/G RATIO 0.9 (1-2); BILIRUBIN TOTAL 0.4 mg/dL (0.2-1.0); BLOOD UREA NITROGEN,BUN 31 mg/dL (7-18); CARBON DIOXIDE,CO2 20 mEq/L (21-32); CHLORIDE,CL 104 mEq/L (98-107); CREATININE 2.7 mg/dL (0.55-1.02); EST CRCL DRUG DOSING (CG) 19.70 mL/min; ESTIMATED GFR 22 mL/min (>60); PROTEIN TOTAL,TP 6.7 g/dl (6.4-8.2); SODIUM,NA 139 mEq/L (136-145)
[2025-03-01 00:21] LABS: GLUCOSE RANDOM 174 mg/dL (70-99); POTASSIUM,K 3.0 mEq/L (3.5-5.1)
[2025-03-01 01:13] VITALS: BP 134/78; PULSE 87
== END 2025-03-01 01:07 | disposition home or self-care (01) ==
LOC: JD.ED 22:57
DX: R79.1 Abnormal coagulation profile (principal); I12.9 Hypertensive chronic kidney disease with stage 1 through stage 4 chronic kidney disease, or unspecified chronic kidney disease; N18.9 Chronic kidney disease, unspecified; E78.00 Pure hypercholesterolemia, unspecified; K21.9 Gastro-esophageal reflux disease without esophagitis; J45.909 Unspecified asthma, uncomplicated; E66.9 Obesity, unspecified; Z79.899 Other long term (current) drug therapy; Z79.01 Long term (current) use of anticoagulants; Z88.8 Allergy status to other drugs, medicaments and biological substances; Z88.0 Allergy status to penicillin; Z88.2 Allergy status to sulfonamides; Z68.38 Body mass index [BMI] 38.0-38.9, adult
CPT/HCPCS: 36415; 80053; 85025; 85610; 99284; A9270